=== PATIENT | female | born 1950 | race Caucasian/White ===

== ENCOUNTER 2024-01-02 08:09 | Inpatient (IN) | payer MEDICARE, OTHER ==
[~2024-01-02] VITALS: Ht 177.8 cm; Wt 76.2 kg
[2024-01-02] VITALS (12 sets, daily range): BP systolic 130–161; BP diastolic 52–87
[~2024-01-02 08:09] MED LIST: ALBU90OI INH; AMIO200 PO; CYAN100 PO; DIPH50 PO; EPIN.3I IM; ERGO400 PO; FERR325 PO; FURO20 PO; LEVSOD100 PO; METO50ER PO; POTCHL20ER PO; RANI150 PO; ROSU5 PO; WARF5 PO
[2024-01-02] MEDS ORDERED: Morphine Sulfate 4 MG/1 ML Injection IV ONE (08:25)
[2024-01-02] MEDS ORDERED: Ondansetron HCl 2 MG / ML 2ML Vial IV ONE (08:25)
[2024-01-02 11:00] LABS: BASOPHILS ABSOLUTE AUTO 0.03 K/mm3 (0.00-0.23); BASOPHILS PERCENT AUTO 0 % (0-2); EOSINOPHILS ABSOLUTE AUTO 0.02 K/mm3 (0.00-0.68); EOSINOPHILS PERCENT AUTO 0 % (0-6); Hematocrit 37.5 % (33.0-51.0); Hemoglobin 12.7 g/dL (11.5-16.0); IMMATURE GRAN ABSOLUTE AUTO 0.04 K/mm3 (0.00-0.10); IMMATURE GRAN PERCENT AUTO 0 % (0-1); LYMPHOCYTES ABSOLUTE AUTO 0.79 K/mm3 (0.84-5.20); LYMPHOCYTES PERCENT AUTO 6 % (21-46); MONOCYTES PERCENT AUTO 5 % (4-13); Mean Corpuscular HGB 32.1 pg (26.0-34.0); Mean Corpuscular HGB Conc 33.9 g/dL (31.5-36.5); Mean Corpuscular Volume 95 fL (80-100); NEUTROPHILS PERCENT AUTO 88 % (41-73); Platelet Count 211 K/mm3 (150-400); RDW Standard Deviation 42.3 fL (35.1-46.3); Red Blood Cell Count 3.96 M/mm3 (3.80-5.20); White Blood Cell Count 12.68 K/mm3 (4.00-11.30)
[2024-01-02] MEDS ORDERED: Acetaminophen 325 MG TABLET PO PRN (11:05)
[2024-01-02] MEDS ORDERED: HYDROmorphone HCl/Pf 1MG SYR IV PRN ×2 (11:10→18:00)
[2024-01-02 11:24] LABS: Albumin, Blood 3.2 g/dL (3.4-5.0); Albumin/Globulin Ratio 0.9 (0.8-1.8); Bilirubin, Total 0.9 mg/dL (0.1-1.0); Bun/Creatinine Ratio 27.4 (12.0-20.0); Calcium, Blood 8.4 mg/dL (8.5-10.1); Creatinine, Blood 0.59 mg/dL (0.40-1.00); Globulin, Blood 3.4 g/dL (2.2-4.0); Potassium, Blood 4.4 mmol/L (3.5-5.5); Total Protein, Blood 6.6 g/dL (6.4-8.2)
[2024-01-02] MEDS ORDERED: Calcium Carbonate 500 MG Tab Chew PO ONE (11:40)
[2024-01-02] MEDS ORDERED: Morphine Sulfate 4 MG/1 ML Injection IV PRN (11:55)
[2024-01-02] MEDS ORDERED: Calcium Carbonate 500 MG Tab Chew PO PRN (11:55)
[2024-01-02] MEDS ORDERED: Lactated Ringer's 1,000 ML IV SCH (15:00)
[2024-01-02] MEDS ORDERED: Acetaminophen 500 MG Tab PO SCH (15:10)
[2024-01-02] MEDS ORDERED: OxyCODONE HCL 10 MG TABCR PO SCH (15:10)
[2024-01-02] MEDS ORDERED: Ropivacaine 0.5% HCl/Pf 123.125 MG,EPINEPHrine HCL 0.25 MG,Ketorolac Tromethamine 15 MG... INFIL SCH (15:10)
[2024-01-02] MEDS ORDERED: Chlorhexidine Mouth Care 15 ML UDC MT SCH (15:10)
[2024-01-02] MEDS ORDERED: CeFAZolin Sodium 2,000 MG in NS 100 ML IV SCH (15:10)
[2024-01-02] MEDS ORDERED: Tranexamic Acid 100 ML IV SCH (15:12)
--- NOTE | 2024-01-02 15:55 | NUR ---
PRE-OP NOTE PT A&OX4, BREATHING RA, NO COMPLAINTS. PT BROUGHT IN HOSPITAL BED FROM SURGICAL ROOM. RING REMOVED IN ROOM AND PT PLACED IN PURSE. GLASSES BROUGHT TO PACU FOR POST OP. Patient confirms NPO status and agrees with scheduled surgery. Pre-Op teaching done. Pt verbalizes understanding.
--- NOTE | 2024-01-02 16:23 | NUR ---
SHIFT SUMMARY PT HAD A GLF AT HOME AND EXPERIENCED A L HIP FRACTURE. L LEG IS SHORTENED AND EXTERNALLY ROTATED. PT TO SURGERY TODAY AND IS CURRENTLY IN THE OR AT THE TIME OF THIS RN WRITING THIS NOTE. PT IS A/O X4, PLEASANT AND COOPERATIVE WITH CARE. PT REQUESTED TO HAVE PURSE LOCKED UP WHILE SHE IS IN SURGERY. PURSE LOCKED UP IN CHART BOX AT THIS TIME.
[2024-01-02] MEDS ORDERED: Etomidate 2MG / ML 10ML Vial ONE (16:38)
[2024-01-02] MEDS ORDERED: FentaNYL Citrate 50 MCG/ML 2 ML Injection ONE (16:47)
[2024-01-02] MEDS ORDERED: SuccINYLCHOLINE Chloride 100 MG/5 ML 5MLSYR ONE (17:07)
[2024-01-02] MEDS ORDERED: Rocuronium Bromide 10 MG/ML 5ML Injection IV ONE (17:07)
[2024-01-02] MEDS ORDERED: Phenylephrine HCl 10mg/ml 1 ml Vial ONE (17:07)
[2024-01-02] MEDS ORDERED: Ondansetron HCl 2 MG / ML 2ML Vial ONE (17:07)
[2024-01-02] MEDS ORDERED: Dexamethasone Sod Phos 10 MG/ML 1ML VIAL ONE (17:07)
[2024-01-02] MEDS ORDERED: Lidocaine HCl 2% 20 ML MDV ONE (17:07)
[2024-01-02] MEDS ORDERED: propofoL 20 ML IV ONE (17:32)
[2024-01-02] MEDS ORDERED: Ketorolac Tromethamine 30mg Vial ONE (17:56)
[2024-01-02] MEDS ORDERED: Droperidol 5 mg/2 ml Vial IV PRN (18:00)
[2024-01-02] MEDS ORDERED: Albuterol 2.5 MG/3 ML VIAL INH PRN (18:00)
[2024-01-02] MEDS ORDERED: FentaNYL Citrate 50 MCG/ML 2 ML Injection IV PRN (18:00)
[2024-01-02] MEDS ORDERED: Sugammadex Sodium 200 MG/2ML SDV (100 MG/ML) ONE (18:25)
[2024-01-03 00:07] VITALS: BP 116/52
[2024-01-03 03:29] VITALS: BP 115/54
--- NOTE | 2024-01-03 04:23 | NUR ---
SHIFT SUMMARY POD1 L DEVANG HIP. DRESSING IS C/D/I, SENSATION AND CIRCULATION REMAIN INTACT. VSS. PT SLEPT ON AND OFF T/O THE NIGHT. AMBULATED TO THE C W/MIN ASSIST T/O THE NIGHT. VOIDING W/O DIFFICULTY. TOLLERATING PO INTAKE W/O N/V. PT DID NOT REQUIRE ANY PAIN MEDICATION T/O THE NIGHT. OVERALL NO ACUTE EVENTS NOTED. PLAN FOR PT EVAL TODAY AND POSSIBLE D/C IF CLEARED. THE PATIENT IS CURRENTLY SLEEPING, IN NO DISTRESS
[2024-01-03 05:08] LABS: BASOPHILS ABSOLUTE AUTO 0.01 K/mm3 (0.00-0.23); BASOPHILS PERCENT AUTO 0 % (0-2); EOSINOPHILS PERCENT AUTO 0 % (0-6); Hematocrit 31.9 % (33.0-51.0); Hemoglobin 10.8 g/dL (11.5-16.0); IMMATURE GRAN ABSOLUTE AUTO 0.03 K/mm3 (0.00-0.10); IMMATURE GRAN PERCENT AUTO 0 % (0-1); LYMPHOCYTES ABSOLUTE AUTO 0.34 K/mm3 (0.84-5.20); LYMPHOCYTES PERCENT AUTO 4 % (21-46); MONOCYTES ABSOLUTE AUTO 0.33 K/mm3 (0.16-1.47); MONOCYTES PERCENT AUTO 4 % (4-13); Mean Corpuscular HGB 31.8 pg (26.0-34.0); Mean Corpuscular HGB Conc 33.9 g/dL (31.5-36.5); Mean Corpuscular Volume 94 fL (80-100); Mean Platelet Volume 9.1 fL (9.1-12.4); NEUTROPHILS ABSOLUTE AUTO 7.71 K/mm3 (1.96-9.15); NEUTROPHILS PERCENT AUTO 92 % (41-73); Platelet Count 172 K/mm3 (150-400); RDW Standard Deviation 41.7 fL (35.1-46.3); White Blood Cell Count 8.42 K/mm3 (4.00-11.30)
[2024-01-03 05:42] LABS: Albumin, Blood 3.2 g/dL (3.4-5.0); Bilirubin, Total 0.9 mg/dL (0.1-1.0); Bun/Creatinine Ratio 19.3 (12.0-20.0); Calcium, Blood 8.8 mg/dL (8.5-10.1); Creatinine, Blood 0.73 mg/dL (0.40-1.00); Globulin, Blood 3.1 g/dL (2.2-4.0); Potassium, Blood 4.4 mmol/L (3.5-5.5); Total Protein, Blood 6.3 g/dL (6.4-8.2)
[2024-01-03 07:24] VITALS: BP 117/51
[2024-01-03] MEDS ORDERED: OxyCODONE HCL 5 MG TAB PO PRN (08:05)
[2024-01-03] MEDS ORDERED: Docusate Sodium/Senna 1 Tab PO PRN (08:10)
[2024-01-03 14:06] VITALS: BP 134/62
[2024-01-03] MEDS ORDERED: Enoxaparin 40 MG/0.4 ML SYR SC SCH (16:00)
[2024-01-03] MEDS ORDERED: Albuterol HFA200 ACT/6.7 GM INH INH SCH (16:05)
[2024-01-03] MEDS ORDERED: DiphenhydrAMINE HCL 25 MG Cap PO PRN (16:05)
[2024-01-03] MEDS ORDERED: PredniSONE 5 MG Tab PO SCH (17:00)
--- NOTE | 2024-01-03 18:42 | NUR ---
SHIFT SUMMARY POD 1 R DEVANG HIP, A/OX4, VSS, TOLERATING PO, PAIN TOLERABLE THIS SHIFT, ABLE TO AMBULATE WELL USING FWW/GB, VOIDING INDEPENDENTLY. PLAN FOR DC WITH HH ONCE HER FRIEND GETS BACK IN TOWN (POSSIBLY FRIDAY). NO ACUTE EVENTS THIS SHIFT, CALL LIGHT IN REACH.
[2024-01-03 19:09] VITALS: BP 124/48
[2024-01-03] MEDS ORDERED: Albuterol HFA200 ACT/6.7 GM INH INH PRN (21:05)
[2024-01-04 05:04] VITALS: BP 106/52
--- NOTE | 2024-01-04 05:37 | NUR ---
SHIFT SUMMARY NOC. PT POD 2 FOR R DEVANG HIP. AQUACEL DRESSING C/D/I. PT AMBULATING WELL WITH FWW, GAIT BELT, AND SBA. PT VOIDING AND TOLERATING PO INTAKE. PT MEDICATED FOR PAIN WITH REPORTED RELIEF. PT ANXIOUS AND TEARFUL ABOUT DISCHARGE AT APPROX 0000. THERAPEUTIC COMMUNICATION PROVIDED AND PT VERBALIZED FEELING BETTER. PT RESTED WITH EYES CLOSED AND CALL LIGHT IN REACH.
[2024-01-04 07:44] VITALS: BP 105/48
[2024-01-04 08:36] LABS: Hematocrit 31.1 % (33.0-51.0); Hemoglobin 10.8 g/dL (11.5-16.0)
[2024-01-04 16:39] VITALS: BP 141/68
--- NOTE | 2024-01-04 18:26 | NUR ---
SHIFT SUMMARY POD2 R DEVANG HIP, A/OX4, VSS, TOLERATING PO, PAIN WELL MANAGED, ABLE TO AMBULATE IN HER ROOM INDEPENDENTLY WITH HER WALKER. PLAN TO DC WITH HH TOMORROW. NO ACUTE EVENTS THIS SHIFT, CALL LIGHT IN REACH.
[2024-01-04 19:23] VITALS: BP 138/65
[2024-01-05 04:21] VITALS: BP 109/56
[2024-01-05 07:09] VITALS: BP 111/65
--- NOTE | 2024-01-05 07:33 | NUR ---
SHIFT SUMMARY NOC. PT POD 3 FOR R DEVANG HIP RELATED TO GLF. AQUACEL DRESSING C/D/I. PT AMBULATING WELL WITH FWW, GAIT BELT, AND SBA. PT VOIDING AND TOLERATING PO INTAKE. PT MEDICATED FOR PAIN X2 WITH REPORTED RELIEF. PT RESTED WITH EYES CLOSED AND CALL LIGHT IN REACH.
[2024-01-05] MEDS ORDERED: PRED5 PO (13:28)
[2024-01-05 14:59] VITALS: BP 132/69
[2024-01-05] MEDS ORDERED: Acetaminophen650 M1 PO (16:09)
[2024-01-05] MEDS ORDERED: Aspir 8181 MG PO (16:09)
[2024-01-05] MEDS ORDERED: TRAM50 PO (16:10)
--- NOTE | 2024-01-05 16:51 | NUR ---
01/05/24 1651 Palmira Willett VERIFICATIONS: EDIT CHART.
--- NOTE | 2024-01-05 17:02 | NUR ---
DISCHARGE PT PROVIDED WITH WRITTEN AND VERBAL DISCHARGE INSTRUCTIONS, PT VERBALIZED UNDERSTANDING AND QUESTIONS ANSWERED. VSS PRIOR TO DISCHARGE. CLEAN DRESSINGS PROVIDED AT TIME OF DISCHARGE. PT ASSISTED OUT IN W/C AT APPROXIMATELY 1620.
== END 2024-01-05 16:20 | disposition home health service (06) | DRG 522 ==
LOC: ER 08:09 → SURS 11:30
PROVIDERS: Nurse Practitioner; Orthopaedic Surgery; Student in an Organized Health Care Education/Training Program; ADMIT Hospitalist
PROC: 0SRS019 Replacement of Left Hip Joint, Femoral Surface with Metal Synthetic Substitute, Cemented, Open Approach (ICD-10-PCS; principal; 2024-01-02 16:00)
DX: S72.002A Fracture of unspecified part of neck of left femur, initial encounter for closed fracture (principal); L76.32 Postprocedural hematoma of skin and subcutaneous tissue following other procedure; W18.30XA Fall on same level, unspecified, initial encounter; E78.5 Hyperlipidemia, unspecified; M35.3 Polymyalgia rheumatica; R73.03 Prediabetes; D64.9 Anemia, unspecified; K30 Functional dyspepsia; R01.1 Cardiac murmur, unspecified; J45.20 Mild intermittent asthma, uncomplicated
CPT/HCPCS: 36415; 72170; 73502; 80053; 82947; 83036; 85014; 85018; 85025; 93005; 93010; 94760; 94762; 96374; 96375; 97110; 97116; 97161; 99284-25; A9270; C1713; C1776; J0171; J0330; J0690; J0735; J1100; J1650; J1885; J2270; J2371; J2405; J2704; J2795; J3010; J7120; J7512